=== PATIENT | male | born 1955 | race Asian ===

== ENCOUNTER 2019-03-01 04:53 | Emergency (ER) | payer OTHER ==
[~2019-03-01] VITALS: Ht 165.1 cm; Wt 54.4 kg
[2019-03-01 04:58] VITALS: BP_SYST 153
[2019-03-01 07:04] VITALS: BP_SYST 144
== END 2019-03-01 07:04 | disposition home or self-care (01) ==
LOC: SED 04:53
DX: J44.1 Chronic obstructive pulmonary disease with (acute) exacerbation (principal); J18.9 Pneumonia, unspecified organism
CPT/HCPCS: 71045; 99283